=== PATIENT | female | born 1975 | race Caucasian/White ===

== ENCOUNTER 2016-11-29 10:27 | Inpatient (IN) | payer OTHER ==
[2016-11-29 10:44] VITALS: BMI 20.3
--- NOTE | 2016-11-29 14:05 | HP ---
COWS - Scale Resting Pulse: 0= [place] 80 or Below Sweatin=Flushed/Facial Moisture Restless Observation: 1= Difficult to Sit Still Pupil Size: 0= Normal to Room Light Bone or Joint Aches: 2= Severe Diffuse Aches Runny Nose/ Eye Tearin= Runny Nose/Eyes GI Upset > 30mins: 2= Nausea/Diarrhea Tremor Observation: 2= Slight Tremor Visible Yawning Observation: 2= >3x During Session Anxiety or Irritability: 2=Irritable/Anxious Goose Flesh Skin: 3=Piloerection COWS Score: 18 Admission ROS S - HPI Chief Complaint: i want to be clean and sober again. Allergies/Adverse Reactions: Allergies Allergy/AdvReac Type Severity Reaction Status Date / Time No Known Allergies Allergy Verified 11/29/16 11:40 History of Present Illness: pt is a 41yr old male with a history of heroin dependence seeking detox for treatment. Exam Limitations: No Limitations - Ebola screening Have you traveled outside of the country in the last 21 days: No Have you had contact with anyone from an Ebola affected area: No Have you been sick,other than usual withdrawal symptoms: No Do you have a fever: No - Review of Systems Constitutional: Chills, Diaphoresis, Loss of Appetite, Night Sweats, Changes in sleep, Unintentional Wgt. Loss EENT: reports: Tearing, Nose Congestion Respiratory: reports: No Symptoms reported GI: reports: Constipated, Nausea, Poor Appetite, Poor Fluid Intake : reports: No Symptoms Reported Musculoskeletal: reports: Back Pain, Joint Pain, Muscle Pain Integumentary: reports: Flushing, Sweating Neuro: reports: Headache, Seizure (sep 2016 benzo related seizure), Tingling, Tremors Endocrine: reports: Excessive Sweating, Flushing, Intolerance to Cold, Intolerance to Heat Hematology: reports: No Symptoms Reported Psychiatric: reports: Judgement Intact, Mood/Affect Appropiate, Orientated x3, Agitated, Anxious Other Systems: Reviewed and Negative Patient History - Patient Medical History Hx Anemia: No Hx Asthma: No Hx Chronic Obstructive Pulmonary Disease (COPD): No Hx Cancer: No Hx Cardiac Disorders: No Hx Congestive Heart Failure: No Hx Hypertension: No Hx Hypercholesterolemia: No Hx Pacemaker: No HX Cerebrovascular Accident: No Hx Seizures: Yes (09/2016) Hx Dementia: No Hx Diabetes: No Hx Gastrointestinal Disorders: No Hx Liver Disease: No Hx Genitourinary Disorders: No Hx Sexually Transmitted Disorders: No Hx Renal Disease (ESRD): No Hx Thyroid Disease: No Hx Human Immunodeficiency Virus (HIV): No (negative) Hx Hepatitis C: Yes (diagnosed in 2017) Hx Depression: No Hx Suicide Attempt: No (denies) Hx Bipolar Disorder: No Hx Schizophrenia: No Other Medical History: insomnia - Patient Surgical History Past Surgical History: No - PPD History Previous Implant?: Yes Documented Results: Negative w/o proof Implanted On Prior [facility] Admission?: No PPD to be Administered?: Yes - Reproductive History Last Menstrual Period: 09/22/16 Patient : No - Smoking Cessation Smoking history: Current every day smoker Have you smoked in the past 12 months: Yes Aproximately how many cigarettes per day: 20 Hx Chewing Tobacco Use: No Initiated information on smoking cessation: Yes 'Breaking Loose' booklet given: 11/29/16 - Substance & Tx. History Hx Alcohol Use: Yes Hx Substance Use: Yes Substance Use Type: Cocaine, Heroin, Tranquilizers Hx Substance Use Treatment: Yes - Substances Abused Alprazolam (Xanax) Route: Oral Frequency: Daily Amount used: 4mg Age of first use: 40 Date of Last Use: 11/27/16 Heroin Route: Injection Frequency: Daily Amount used: 30 bags Age of first use: 16 Date of Last Use: 11/28/16 Cocaine Route: Smoking Frequency: Daily Amount used: 1 gram Age of first use: 16 Date of Last Use: 11/27/16 Family Disease History - Family Disease History Family History: Denies Admission Physical Exam S - Vital Signs Vital Signs: Vital Signs - 24 hr 11/29/16 10:40 Temperature 97 F L Pulse Rate 72 Respiratory 20 Rate Blood Pressure 116/83 - Physical General Appearance: Yes: Appropriately Dressed, Moderate Distress, Tremorous, Irritable, Sweating, Anxious HEENTM: Yes: Hearing grossly Normal, Normal Voice Respiratory: Yes: Lungs Clear, Normal Breath Sounds, No Respiratory Distress Neck: Yes: No masses,lesions,Nodules Breast: Yes: Within Normal Limits Cardiology: Yes: Regular Rhythm, Regular Rate, S1, S2 Abdominal: Yes: Normal Bowel Sounds, Non Tender, Soft Genitourinary: Yes: Within Normal Limits Back: Yes: Normal Inspection Musculoskeletal: Yes: full range of Motion Extremities: Yes: Normal Capillary Refill, Normal Inspection, Tremors Neurological: Yes: Fully Oriented, Alert, Normal Response Integumentary: Yes: Diaphoresis, Track Mcknight Lymphatic: Yes: Within Normal Limits - Diagnostic (1) Opioid dependence with withdrawal Current Visit: Yes Status: Chronic (2) Cocaine dependence Current Visit: Yes Status: Chronic Qualifiers: Substance use status: uncomplicated Qualified Code(s): F14.20 - Cocaine dependence, uncomplicated (3) Nicotine dependence Current Visit: Yes Status: Chronic Qualifiers: Nicotine product type: cigarettes Substance use status: uncomplicated Qualified Code(s): F17.210 - Nicotine dependence, cigarettes, uncomplicated (4) History of seizure Current Visit: Yes Status: Suspected (5) Insomnia Current Visit: Yes Status: Chronic Cleared for Admission [facility] - Detox or Rehab [facility] Level of Care: Medically Managed Detox Regimen/Protocol: Methadone [facility] Breath Alcohol Content Breath Alcohol Content: 0 Urine Pregancy Test - Result Urine Test Results: Negative- NO Line Present Urine Drug Screen - Results Drug Screen Negative: No Urine Drug Screen Results: ELAINE-Cocaine, OPI-Opiates
[2016-11-29] MEDS ORDERED: diphenhydrAMINE HCL 50 MG CAPSULE PO PRN (14:08)
[2016-11-29] MEDS ORDERED: guaiFENesin/D-METHORPHAN HB 10 ML UNIT-DOSE CUPS PO PRN (14:08)
[2016-11-29] MEDS ORDERED: P-EPHED 60MG/TRIPROLIDI 2.5MG TABLET PO PRN (14:08)
[2016-11-29] MEDS ORDERED: MAGNESIUM HYDROX 2400MG/30ML ORAL SUSPENSION 30 ML CUP PO PRN (14:08)
[2016-11-29] MEDS ORDERED: MENTHOL/PHENOL 1 EACH UD MM PRN (14:08)
[2016-11-29] MEDS ORDERED: MAG HYDROX/AL HYDROX/SIMETH 30 ML UNIT-DOSE CUP PO PRN (14:08)
[2016-11-29] MEDS ORDERED: LOPERAMIDE HCL 2 MG CAPSULE PO PRN (14:08)
[2016-11-29] MEDS ORDERED: MAGNESIUM CITRATE 300 ML BOTTLE PO PRN (14:08)
[2016-11-29] MEDS ORDERED: ACETAMINOPHEN 325 MG TABLET (FP) PO PRN (14:08)
[2016-11-29 14:53] LABS: HIV 1 & 2 AB NEGATIVE; HIV 1 AGp24 NEGATIVE
[2016-11-29] MEDS ORDERED: METHADONE HCL 10 MG TABLET (FOR DETOX USE ONLY) PO ONE ×2 (15:00→23:00)
[2016-11-29] MEDS: diazePAM 5 MG TABLET PO PRN ×2 (15:01→18:59)
[2016-11-29 20:13] LABS: URINE APPEARANCE CLEAR; URINE BILIRUBIN NEGATIVE (NEGATIVE); URINE BLOOD NEGATIVE (NEGATIVE); URINE COLOR LTYELLOW; URINE GLUCOSE (UA) NEGATIVE (NEGATIVE); URINE KETONE NEGATIVE (NEGATIVE); URINE LEUK ESTERASE NEGATIVE (NEGATIVE); URINE NITRITE NEGATIVE (NEGATIVE); URINE PROTEIN NEGATIVE (NEGATIVE); URINE UROBILINOGEN NEGATIVE E.U./dl (0.2-1.0)
[2016-11-29] MEDS: THIAMINE HCL 100 MG TABLET (FP) PO SCH (22:37)
[2016-11-30] MEDS: diazePAM 5 MG TABLET PO PRN ×4 (03:52→23:06)
[2016-11-30] MEDS ORDERED: METHADONE HCL 10 MG TABLET (FOR DETOX USE ONLY) PO ONE (10:00)
[2016-11-30 10:43] LABS: MCH 27.5 pg (25.7-33.7); MCHC 32.2 g/dl (32.0-36.0); MEAN CELL VOLUME 85.3 fl (80-96); MEAN PLT VOLUME 9.5 fl (7.5-11.1); PLATELET COUNT 190 K/MM3 (134-434); RDW 17.6 % (11.6-15.6); WHITE BLOOD COUNT 8.9 K/mm3 (4.0-10.0)
[2016-11-30] MEDS: NICOTINE 21 MG/24 HOURS TOPICAL PATCH TD SCH (11:17)
[2016-11-30] MEDS: PRENATAL VITAMINS W/ FOLIC ACID TABLET (FP) PO SCH (11:17)
[2016-11-30 11:58] LABS: ALBUMIN 3.7 g/dl (3.4-5.0); ANION GAP 8 (8-16); CALCIUM 9.2 mg/dL (8.5-10.1); CO2 31 mmol/L (21-32); GLUCOSE,RANDOM 66 mg/dL (74-106)
[2016-11-30 12:02] LABS: ALK PHOS 107 U/L (45-117); BILIRUBIN,TOTAL 0.5 mg/dL (0.2-1.0); CREATININE 0.6 mg/dL (0.55-1.02); SGOT/AST 15 U/L (15-37); SGPT/ALT 26 U/L (12-78); TOT PROT 6.8 g/dl (6.4-8.2)
--- NOTE | 2016-11-30 14:35 | PN ---
S COWS - Scale Resting Pulse: 1= [place] 81-100 Sweatin= Chills/Flushing Restless Observation: 3= Extraneous Movement Pupil Size: 1= Pupils >than Normal Bone or Joint Aches: 2= Severe Diffuse Aches Runny Nose/ Eye Tearin= Runny Nose/Eyes GI Upset > 30mins: 3= Vomiting/Diarrhea Tremor Observation of Outstretched Hands: 2= Slight Tremor Visible Yawning Observation: 1= 1-2x During Session Anxiety or Irritability: 2=Irritable/Anxious Goose Flesh Skin: 0=Smooth Skin COWS Score: 18 S Progress Note (SOAP) Subjective: ALERT,IRRITABLE,ANXIOUS,INTERRUPTED SLEEP,TREMOR,PAIN IN THE BODY AND BACK Objective: 11/30/16 14:32 Vital Signs Temperature 97.1 F L 11/30/16 14:28 Pulse Rate 85 11/30/16 14:28 Respiratory Rate 16 11/30/16 14:28 Blood Pressure 103/63 11/30/16 14:28 O2 Sat by Pulse Oximetry (%) EKG NSR WITH SINUS ARRHYTHMIA Laboratory Last Values WBC 8.9 K/mm3 (4.0-10.0) 11/30/16 06:00 RBC 4.28 M/mm3 (3.60-5.2) 11/30/16 06:00 Hgb 11.8 GM/dL (10.7-15.3) 11/30/16 06:00 Hct 36.6 % (32.4-45.2) 11/30/16 06:00 MCV 85.3 fl (80-96) 11/30/16 06:00 MCHC 32.2 g/dl (32.0-36.0) 11/30/16 06:00 RDW 17.6 % (11.6-15.6) H 11/30/16 06:00 Plt Count 190 K/MM3 (134-434) 11/30/16 06:00 MPV 9.5 fl (7.5-11.1) 11/30/16 06:00 Sodium 142 mmol/L (136-145) 11/30/16 06:00 Potassium 4.9 mmol/L (3.5-5.1) 11/30/16 06:00 Chloride 103 mmol/L (98-107) 11/30/16 06:00 Carbon Dioxide 31 mmol/L (21-32) 11/30/16 06:00 Anion Gap 8 (8-16) 11/30/16 06:00 BUN 22 mg/dL (7-18) H 11/30/16 06:00 Creatinine 0.6 mg/dL (0.55-1.02) 11/30/16 06:00 Creat Clearance w eGFR > 60 (>60) 11/30/16 06:00 Random Glucose 66 mg/dL (74-106) L 11/30/16 06:00 Calcium 9.2 mg/dL (8.5-10.1) 11/30/16 06:00 Total Bilirubin 0.5 mg/dL (0.2-1.0) 11/30/16 06:00 AST 15 U/L (15-37) 11/30/16 06:00 ALT 26 U/L (12-78) 11/30/16 06:00 Alkaline Phosphatase 107 U/L (45-117) 11/30/16 06:00 Total Protein 6.8 g/dl (6.4-8.2) 11/30/16 06:00 Albumin 3.7 g/dl (3.4-5.0) 11/30/16 06:00 Urine Color Ltyellow 11/29/16 19:36 Urine Appearance Clear 11/29/16 19:36 Urine pH 5.0 (5.0-8.0) 11/29/16 19:36 Ur Specific [place] 1.019 (1.001-1.035) 11/29/16 19:36 Urine Protein Negative (NEGATIVE) 11/29/16 19:36 Urine Glucose (UA) Negative (NEGATIVE) 11/29/16 19:36 Urine Ketones Negative (NEGATIVE) 11/29/16 19:36 Urine Blood Negative (NEGATIVE) 11/29/16 19:36 Urine Nitrite Negative (NEGATIVE) 11/29/16 19:36 Urine Bilirubin Negative (NEGATIVE) 11/29/16 19:36 Urine Urobilinogen Negative E.U./dl (0.2-1.0) 11/29/16 19:36 Ur Leukocyte Esterase Negative (NEGATIVE) 11/29/16 19:36 HIV 1&2 Antibody Screen Negative 11/29/16 12:00 HIV P24 Antigen Negative 11/29/16 12:00 Assessment: 11/30/16 14:34 WITHDRAWAL SYMPTOM 11/30/16 14:34 Plan: CONTINUE DETOX
--- NOTE | 2016-11-30 14:56 | CONSULT ---
[facility] Psychiatric Consult - Data Date of interview: 11/30/16 Admission source: [facility] Identifying data: Readmission to [facility] for this 41 y/o female seeking detox teatment for heroin,cocaine and benzodiazepine dependence.Patient is single without children,domiciled,unemployed and deprived of any source of income. Substance Abuse History: - Smoking Cessation. Smoking history: Current every day smoker. Have you smoked in the past 12 months: Yes. Aproximately how many cigarettes per day: 20. Hx Chewing Tobacco Use: No. Initiated information on smoking cessation: Yes. 'Breaking Loose' booklet given: 11/29/16. - Substance & Tx. History. Hx Alcohol Use: Yes. Hx Substance Use: Yes. Substance Use Type : Cocaine, Heroin, Tranquilizers. Hx Substance Use Treatment: Yes. - Substances Abused. Alprazolam (Xanax). Route: Oral. Frequency: Daily. Amount used: 4mg. Age of first use: 40. Date of Last Use: 11/27/16. Heroin. Route: Injection. Frequency: Daily. Amount used: 30 bags. Age of first use: 16. Date of Last Use: 11/28/16. Cocaine. Route: Smoking. Frequency: Daily. Amount used: 1 gram. Age of first use: 16. Date of Last Use : 11/27/16. Confirmed by patient. Medical History: History of withdrawal seizures,hepatitis C and migraine headaches. Psychiatric History: Patient denies. Physical/Sexual Abuse/Trauma History: Patient denies. Additional Comment: Urine Drug Screen Results: ELAINE-Cocaine, OPI-Opiates.Noted. Mental Status Exam - Mental Status Exam Alert and Oriented to: Time, Place, Person Cognitive Function: Good Patient Appearance: Well Groomed Mood: Hopeful, Euthymic Affect: Normal Range Patient Behavior: Fatigued, Cooperative Speech Pattern: Clear, Appropriate Voice Loudness: Normal Thought Process: Goal Oriented Thought Disorder: Not Present Hallucinations: Denies Suicidal Ideation: Denies Homicidal Ideation: Denies Insight/Judgement: Poor Sleep: Poorly, Difficulty falling asleep Appetite: Good Muscle strength/Tone: Normal Gait/Station: Normal Psychiatric Findings - Problem List ([place] 1, 2,3) (1) Opioid dependence with withdrawal Current Visit: Yes Status: Acute (2) Cocaine dependence Current Visit: Yes Status: Acute Qualifiers: Substance use status: uncomplicated Qualified Code(s): F14.20 - Cocaine dependence, uncomplicated (3) Nicotine dependence Current Visit: Yes Status: Acute Qualifiers: Nicotine product type: cigarettes Substance use status: uncomplicated Qualified Code(s): F17.210 - Nicotine dependence, cigarettes, uncomplicated (4) History of seizure Current Visit: Yes Status: Suspected (5) Insomnia Current Visit: Yes Status: Chronic - Initial Treatment Plan Initial Treatment Plan: Psychoeducation.Detoxification.Zolpidem 10 mg po hs prn.Patient made aware of the risk of parasomnias.She agrees with this careplan.Observation.
[2016-11-30] MEDS: NICOTINE POLACRILEX 4 MG GUM BC PRN (15:30)
[2016-11-30] MEDS: ZOLPIDEM TARTRATE 5 MG TABLET PO PRN (23:06)
[2016-11-30] MEDS: THIAMINE HCL 100 MG TABLET (FP) PO SCH (23:46)
[2016-12-01] MEDS ORDERED: METHADONE HCL 5 MG TABLET (FOR DETOX USE ONLY) PO ONE (10:00)
[2016-12-01] MEDS: PRENATAL VITAMINS W/ FOLIC ACID TABLET (FP) PO SCH (10:35)
[2016-12-01] MEDS: diazePAM 5 MG TABLET PO PRN ×2 (10:36→14:37)
[2016-12-01] MEDS: NICOTINE 21 MG/24 HOURS TOPICAL PATCH TD SCH (10:36)
[2016-12-01] MEDS: NICOTINE POLACRILEX 4 MG GUM BC PRN ×2 (10:37→22:54)
--- NOTE | 2016-12-01 11:41 | EKG ---
Test Reason : Blood Pressure : / mmHG Vent. Rate : 064 BPM Atrial Rate : 064 BPM P-R Int : 136 ms QRS Dur : 088 ms QT Int : 418 ms P-R-T Axes : 065 052 054 degrees QTc Int : 431 ms NORMAL SINUS RHYTHM WITH SINUS ARRHYTHMIA NORMAL ECG NO PREVIOUS ECGS AVAILABLE Confirmed by JIMMY CRAVEN MD ([id number]) on 12/01/2016 11:40:40 AM Referred By: Confirmed By:JIMMY CRAVEN MD
--- NOTE | 2016-12-01 13:12 | PN ---
[facility] COWS - Scale Resting Pulse: 0= [place] 80 or Below Sweatin= Chills/Flushing Restless Observation: 3= Extraneous Movement Pupil Size: 1= Pupils >than Normal Bone or Joint Aches: 2= Severe Diffuse Aches Runny Nose/ Eye Tearin= Runny Nose/Eyes GI Upset > 30mins: 2= Nausea/Diarrhea Tremor Observation of Outstretched Hands: 2= Slight Tremor Visible Yawning Observation: 1= 1-2x During Session Anxiety or Irritability: 2=Irritable/Anxious Goose Flesh Skin: 0=Smooth Skin COWS Score: 16 B[facility] Progress Note (SOAP) Subjective: ALERT,IRRITABLE,ANXIOUS,INTERRUPTED SLEEP,TREMOR,PAIN IN THE BODY AND BACK Objective: 12/01/16 13:11 Vital Signs Temperature 95.7 F L 12/01/16 10:05 Pulse Rate 80 12/01/16 10:05 Respiratory Rate 18 12/01/16 10:05 Blood Pressure 106/67 12/01/16 10:05 O2 Sat by Pulse Oximetry (%) Assessment: 12/01/16 13:11 WITHDRAWAL SYMPTOM Plan: CONTINUE DETOX
[2016-12-01] MEDS: IBUPROFEN 400 MG TABLET (FP) PO PRN (14:37)
[2016-12-01] MEDS: THIAMINE HCL 100 MG TABLET (FP) PO SCH (22:41)
[2016-12-01] MEDS: hydrOXYzine PAMOATE 50 MG CAPSULE (FP) PO PRN (22:41)
[2016-12-01] MEDS: ZOLPIDEM TARTRATE 5 MG TABLET PO PRN (22:52)
[2016-12-02] MEDS ORDERED: METHADONE HCL 5 MG TABLET (FOR DETOX USE ONLY) PO ONE (10:00)
[2016-12-02] MEDS: PRENATAL VITAMINS W/ FOLIC ACID TABLET (FP) PO SCH (10:32)
[2016-12-02] MEDS: NICOTINE 21 MG/24 HOURS TOPICAL PATCH TD SCH (10:32)
[2016-12-02] MEDS: diazePAM 5 MG TABLET PO PRN (10:34)
--- NOTE | 2016-12-02 11:01 | PN ---
[facility] Progress Note (SOAP) Subjective: irritable sweats interrupted sleep Objective: 12/02/16 11:00 Vital Signs Temperature 97.3 F L 12/02/16 10:20 Pulse Rate 76 12/02/16 10:20 Respiratory Rate 18 12/02/16 10:20 Blood Pressure 106/66 12/02/16 10:20 O2 Sat by Pulse Oximetry (%) awake/alert ambulating no acute distress Assessment: 12/02/16 11:01 withdrawal sx Plan: continue detox increase fluids visitril prn
[2016-12-02] MEDS: hydrOXYzine PAMOATE 50 MG CAPSULE (FP) PO PRN (16:27)
[2016-12-02] MEDS: NICOTINE POLACRILEX 4 MG GUM BC PRN (16:28)
[2016-12-02] MEDS ORDERED: CYCLOBENZAPRINE HCL 10 MG TABLET (FP) PO SCH (22:00)
[2016-12-02] MEDS: ZOLPIDEM TARTRATE 5 MG TABLET PO PRN (22:34)
[2016-12-02] MEDS: CYCLOBENZAPRINE HCL 10 MG TABLET (FP) PO PRN (22:34)
[2016-12-02] MEDS: THIAMINE HCL 100 MG TABLET (FP) PO SCH (22:34)
[2016-12-03] MEDS ORDERED: METHADONE HCL 10 MG TABLET (FOR DETOX USE ONLY) PO ONE (10:00)
[2016-12-03] MEDS ORDERED: LIDOCAINE 5% TOPICAL PATCH TP ONE (10:17)
[2016-12-03] MEDS: PRENATAL VITAMINS W/ FOLIC ACID TABLET (FP) PO SCH (10:49)
[2016-12-03] MEDS: NICOTINE 21 MG/24 HOURS TOPICAL PATCH TD SCH (10:49)
[2016-12-03] MEDS: IBUPROFEN 400 MG TABLET (FP) PO PRN (10:51)
[2016-12-03] MEDS: CYCLOBENZAPRINE HCL 10 MG TABLET (FP) PO PRN ×2 (10:51→22:31)
[2016-12-03] MEDS: hydrOXYzine PAMOATE 50 MG CAPSULE (FP) PO PRN (10:51)
--- NOTE | 2016-12-03 11:48 | PN ---
[facility] Progress Note (SOAP) Subjective: interrupted sleep, sweats, lbp Objective: 12/03/16 11:46 Vital Signs Temperature 99.0 F 12/03/16 11:28 Pulse Rate 90 12/03/16 11:28 Respiratory Rate 16 12/03/16 11:28 Blood Pressure 101/60 12/03/16 11:28 O2 Sat by Pulse Oximetry (%) Laboratory Tests 11/29/16 11/29/16 11/30/16 12:00 19:36 06:00 WBC 8.9 RBC 4.28 Hgb 11.8 Hct 36.6 MCV 85.3 MCHC 32.2 RDW 17.6 H Plt Count 190 MPV 9.5 Sodium Potassium Chloride Carbon Dioxide Anion Gap BUN Creatinine Creat Clearance w eGFR Random Glucose Calcium Total Bilirubin AST ALT Alkaline Phosphatase Total Protein Albumin Urine Color Ltyellow Urine Appearance Clear Urine pH 5.0 Ur Specific [place] 1.019 Urine Protein Negative Urine Glucose (UA) Negative Urine Ketones Negative Urine Blood Negative Urine Nitrite Negative Urine Bilirubin Negative Urine Urobilinogen Negative Ur Leukocyte Esterase Negative RPR Titer HIV 1&2 Antibody Screen Negative HIV P24 Antigen Negative 11/30/16 11/30/16 06:00 06:00 WBC RBC Hgb Hct MCV MCHC RDW Plt Count MPV Sodium 142 Potassium 4.9 Chloride 103 Carbon Dioxide 31 Anion Gap 8 BUN 22 H Creatinine 0.6 Creat Clearance w eGFR > 60 Random Glucose 66 L Calcium 9.2 Total Bilirubin 0.5 AST 15 ALT 26 Alkaline Phosphatase 107 Total Protein 6.8 Albumin 3.7 Urine Color Urine Appearance Urine pH Ur Specific [place] Urine Protein Urine Glucose (UA) Urine Ketones Urine Blood Urine Nitrite Urine Bilirubin Urine Urobilinogen Ur Leukocyte Esterase RPR Titer Nonreactive HIV 1&2 Antibody Screen HIV P24 Antigen pt aox3 in nad ambulating Assessment: 12/03/16 11:47 withdrawal sx' lbp Plan: cont. detox increase fluids lidocaine patch d/c in am
[2016-12-03] MEDS: ZOLPIDEM TARTRATE 5 MG TABLET PO PRN (22:31)
[2016-12-03] MEDS: THIAMINE HCL 100 MG TABLET (FP) PO SCH (22:32)
[2016-12-03] MEDS: NICOTINE POLACRILEX 4 MG GUM BC PRN (22:32)
[2016-12-04] MEDS ORDERED: METHADONE HCL 5 MG TABLET (FOR DETOX USE ONLY) PO ONE (06:00)
[2016-12-04 06:20] VITALS: BP 95/60; PULSE 75; TEMP 97.7
--- NOTE | 2016-12-04 08:35 | DS ---
[facility] Detox Discharge Summary Admission Date: 11/29/16 Discharge Date: 12/04/16 - History Present History: Cocaine Dependence, Opioid Dependence - Physical Exam Results Vital Signs: Vital Signs Temperature 97.7 F 12/04/16 06:00 Pulse Rate 75 12/04/16 06:00 Respiratory Rate 18 12/04/16 06:00 Blood Pressure 95/60 12/04/16 06:00 O2 Sat by Pulse Oximetry (%) - Treatment Hospital Course: Detox Protocol Followed, Detoxed Safely, Responded well, Discharged Condition Good, Rehab Referral Accepted - Medication Discharge Medications: Ambulatory Orders NK [No Known Home Medication] 11/29/16 - Diagnosis (1) Opioid dependence with withdrawal Current Visit: Yes Status: Chronic (2) Cocaine dependence Current Visit: Yes Status: Chronic Qualifiers: Substance use status: uncomplicated Qualified Code(s): F14.20 - Cocaine dependence, uncomplicated (3) Nicotine dependence Current Visit: Yes Status: Acute Qualifiers: Nicotine product type: cigarettes Substance use status: uncomplicated Qualified Code(s): F17.210 - Nicotine dependence, cigarettes, uncomplicated (4) History of seizure Current Visit: Yes Status: Suspected (5) Insomnia Current Visit: Yes Status: Chronic - AMA Did Patient Leave Against Medical Advice: No
[2016-12-04] MEDS ORDERED: LIDOCAINE 5% TOPICAL PATCH TP SCH (10:00)
== END 2016-12-04 09:00 | disposition home or self-care (01) | DRG 773 ==
LOC: YASAS 10:27 → Y6N 12:40
PROVIDERS: ADMIT Internal Medicine Addiction Medicine; ATTEND Internal Medicine Addiction Medicine
PROC: HZ2ZZZZ Detoxification Services for Substance Abuse Treatment (ICD-10-PCS; principal; 2016-11-29)
DX: F11.23 Opioid dependence with withdrawal (principal); F14.20 Cocaine dependence, uncomplicated; F17.210 Nicotine dependence, cigarettes, uncomplicated; B18.2 Chronic viral hepatitis C; I49.9 Cardiac arrhythmia, unspecified; G47.00 Insomnia, unspecified; M54.5 Low back pain; Z86.69 Personal history of other diseases of the nervous system and sense organs
CPT/HCPCS: 36415; 80053; 81003; 85027; 86593; 87389; 93005; 93010

== ENCOUNTER 2018-09-15 12:14 | Inpatient (IN) | payer OTHER ==
[2018-09-15 13:30] VITALS: BMI 23.6
--- NOTE | 2018-09-15 16:25 | HP ---
COWS - Scale Resting Pulse: 0= [place] 80 or Below Sweatin= Chills/Flushing Restless Observation: 1= Difficult to Sit Still Pupil Size: 1= Pupils >than Normal Bone or Joint Aches: 2= Severe Diffuse Aches Runny Nose/ Eye Tearin= Runny Nose/Eyes GI Upset > 30mins: 2= Nausea/Diarrhea Tremor Observation: 1= Tremor [place], Not Seen Yawning Observation: 1= 1-2x During Session Anxiety or Irritability: 2=Irritable/Anxious Goose Flesh Skin: 0=Smooth Skin COWS Score: 13 CIWA Score Nausea/Vomitin Muscle Tremors: 2 Anxiety: 2 Agitation: 2 Paroxysmal Sweats: 2 Orientation: 0-Oriented Tacttile Disturbances: 0-None Auditory Disturbances: 0-None Visual Disturbances: 0-None Headache: 2-Mild CIWA-Ar Total Score: 12 - Admission Criteria [facility] Guidelines: Admission for Medically Managed Detox: Requires at least one of the followin. CIWA greater than 12 2. Seizures within the past 24 hours 3. Delirium tremens within the past 24 hours 4. Hallucinations within the past 24 hours 5. Acute intervention needed for co occurring medical disorder 6. Acute intervention needed for co occurring psychiatric disorder 7. Severe withdrawal that cannot be handled at a lower level of care (continued vomiting, continued diarrhea, abnormal vital signs) requiring intravenous medication and/or fluids 8. Admission ROS [facility] Chief Complaint: WITHDRAWAL SYMPTOMS Allergies/Adverse Reactions: Allergies Allergy/AdvReac Type Severity Reaction Status Date / Time No Known Allergies Allergy Verified 11/29/16 11:40 History of Present Illness: 43 Y.O. FEMALE WITH A HISTORY OF HEROIN, ALCOHOL AND XANAX DEPENDENCE IS HERE SEEKING DETOX SERVICES. SHE REPORTS HER LAST DETOX WAS AT [facility] BUT LEFT [facility] ON 08/19/18. LONGEST PERIOD OF DRUG AND ALCOHOL ABSTINENCE HAS BEEN 5 YEARS. Exam Limitations: No Limitations - Ebola screening Have you traveled outside of the country in the last 21 days: No (N) Have you had contact with anyone from an Ebola affected area: No Have you been sick,other than usual withdrawal symptoms: No Do you have a fever: No - Review of Systems Constitutional: Chills, Diaphoresis EENT: reports: Tearing Respiratory: reports: No Symptoms reported Cardiac: reports: No Symptoms Reported GI: reports: Nausea, Abdominal cramping : reports: No Symptoms Reported Musculoskeletal: reports: Back Pain, Neck Pain, Joint Stiffness Integumentary: reports: No Symptoms Reported Neuro: reports: Headache, Tremors Endocrine: reports: No Symptoms Reported Hematology: reports: No Symptoms Reported Psychiatric: reports: Mood/Affect Appropiate, Orientated x3 Other Systems: Reviewed and Negative Patient History - Patient Medical History Hx Anemia: No Hx Asthma: No Hx Chronic Obstructive Pulmonary Disease (COPD): No Hx Cancer: No Hx Cardiac Disorders: No Hx Congestive Heart Failure: No Hx Hypertension: No Hx Hypercholesterolemia: No Hx Pacemaker: No HX Cerebrovascular Accident: No Hx Seizures: Yes (09/2016 BENZO INDUCED ) Hx Dementia: No Hx Diabetes: No Hx Gastrointestinal Disorders: No Hx Liver Disease: No Hx Genitourinary Disorders: No Hx Sexually Transmitted Disorders: No Hx Renal Disease (ESRD): No Hx Thyroid Disease: No Hx Human Immunodeficiency Virus (HIV): No (negative) Hx Hepatitis C: Yes (diagnosed in 2017 (untreated)) Hx Depression: No Hx Suicide Attempt: No (denies) Hx Bipolar Disorder: No Hx Schizophrenia: No - Patient Surgical History Past Surgical History: Yes Other Surgical History: 04/2017 Fasciotomy of the right left Anesthesia Reaction: No - PPD History Previous Implant?: Yes Documented Results: Negative w/proof Implanted On Prior R Admission?: Yes Date: 12/01/16 Results: 0 PPD to be Administered?: Yes - Reproductive History Patient is a Female of Child Bearing Age (11 -55 yrs old): Yes Last Menstrual Period: 07/16/18 Patient : No - Smoking Cessation Smoking history: Current every day smoker Have you smoked in the past 12 months: Yes Aproximately how many cigarettes per day: 20 Hx Chewing Tobacco Use: No Initiated information on smoking cessation: Yes 'Breaking Loose' booklet given: 09/15/18 - Substance & Tx. History Hx Alcohol Use: Yes Hx Substance Use: Yes Substance Use Type: Alcohol, Heroin, Tranquilizers Hx Substance Use Treatment: Yes (Detox: 08/2018 at [facility] ) - Substances Abused Heroin Route: Injection Frequency: Daily Amount used: 3 grams Age of first use: 16 Date of Last Use: 09/15/18 Alcohol Route: Oral Frequency: Daily Amount used: 1/5 of Vodka Age of first use: 43 Date of Last Use: 09/15/18 Alprazolam (Xanax) Route: Oral Frequency: Daily Amount used: 1/2 stick Age of first use: 33 Date of Last Use: 09/12/18 Family Disease History - Family Disease History Family Disease History: Other: Father (ETOH AND COCAINE DEPENDENCE ) Admission Physical Exam [facility] - Vital Signs Vital Signs: Vital Signs - 24 hr 09/15/18 13:28 Temperature 99.1 F Pulse Rate 69 Respiratory 20 Rate Blood Pressure 131/87 - Physical General Appearance: Yes: Sweating, Anxious HEENTM: Yes: Hearing grossly Normal, Normocephalic, Normal Voice Respiratory: Yes: Chest Non-Tender, Lungs Clear, Normal Breath Sounds, No Respiratory Distress, No Accessory Muscle Use Neck: Yes: No masses,lesions,Nodules Breast: Yes: Breast Exam Deferred Cardiology: Yes: Regular Rhythm, Regular Rate Abdominal: Yes: Normal Bowel Sounds, Non Tender, Flat Genitourinary: Yes: Other (NO COMPLAINTS REPORTED) Back: Yes: Normal Inspection Musculoskeletal: Yes: full range of Motion, Gait Steady Extremities: Yes: Normal Capillary Refill, Normal Inspection, Normal Range of Motion Neurological: Yes: Alert, Normal Mood/Affect, Normal Response Integumentary: Yes: Normal Color, Dry, Warm, Track Mcknight (LEFT ARM) Lymphatic: Yes: Within Normal Limits - Diagnostic (1) Alcohol dependence with uncomplicated withdrawal Current Visit: Yes Status: Chronic (2) Nicotine dependence Current Visit: Yes Status: Chronic Qualifiers: Nicotine product type: cigarettes Substance use status: uncomplicated Qualified Code(s): F17.210 - Nicotine dependence, cigarettes, uncomplicated (3) Cocaine dependence Current Visit: Yes Status: Chronic Qualifiers: Substance use status: uncomplicated Qualified Code(s): F14.20 - Cocaine dependence, uncomplicated (4) Opioid dependence with withdrawal Current Visit: Yes Status: Chronic (5) History of seizure Current Visit: No Status: Suspected Cleared for Admission [facility] - Detox or Rehab [facility] Level of Care: Medically Managed Detox Regimen/Protocol: Methadone/Valium [facility] Breath Alcohol Content Breath Alcohol Content: 0 Urine Pregancy Test - Result Urine Test Results: Negative- NO Line Present Urine Drug Screen - Results Drug Screen Negative: No Urine Drug Screen Results: ELAINE-Cocaine, OPI-Opiates, FEN-Fentanyl
[2018-09-15] MEDS ORDERED: MAG HYDROX/AL HYDROX/SIMETH 30 ML UNIT-DOSE CUP PO PRN (16:31)
[2018-09-15] MEDS ORDERED: MAGNESIUM HYDROX 2400MG/30ML ORAL SUSPENSION 30 ML CUP PO PRN (16:31)
[2018-09-15] MEDS ORDERED: guaiFENesin/D-METHORPHAN HB 10 ML UNIT-DOSE CUPS PO PRN (16:31)
[2018-09-15] MEDS ORDERED: MAGNESIUM CITRATE 300 ML BOTTLE PO PRN (16:31)
[2018-09-15] MEDS ORDERED: ACETAMINOPHEN 325 MG TABLET (FP) PO PRN (16:31)
[2018-09-15] MEDS ORDERED: MENTHOL/PHENOL 1 EACH UD MM PRN (16:31)
[2018-09-15] MEDS ORDERED: LOPERAMIDE HCL 2 MG CAPSULE PO PRN (16:31)
[2018-09-15] MEDS ORDERED: P-EPHED 60MG/TRIPROLIDI 2.5MG TABLET PO PRN (16:31)
[2018-09-15] MEDS ORDERED: METHADONE HCL 10 MG TABLET (FOR DETOX USE ONLY) PO ONE ×2 (17:15→23:00)
[2018-09-15] MEDS ORDERED: diazePAM 5 MG TABLET PO ONE (17:15)
[2018-09-15] MEDS: NICOTINE POLACRILEX 2 MG GUM BC PRN (22:32)
[2018-09-15] MEDS: THIAMINE HCL 100 MG TABLET (FP) PO SCH (22:32)
[2018-09-15] MEDS: diazePAM 5 MG TABLET PO SCH (22:32)
[2018-09-15] MEDS: MELATONIN 5 MG TABLETS PO PRN (22:34)
[2018-09-16] MEDS: diazePAM 5 MG TABLET PO PRN ×3 (01:55→19:12)
[2018-09-16] MEDS: hydrOXYzine PAMOATE 50 MG CAPSULE (FP) PO PRN (01:55)
[2018-09-16] MEDS: diazePAM 5 MG TABLET PO SCH ×3 (06:11→22:34)
--- NOTE | 2018-09-16 09:40 | PN ---
[facility] CIWA - CIWA Score Nausea/Vomitin-Mild Nausea/No Vomiting Muscle Tremors: 3 Anxiety: 3 Agitation: 3 Paroxysmal Sweats: 1-Minimal Palms Moist Orientation: 1-Uncertain about Date Tacttile Disturbances: 0-None Auditory Disturbances: 0-None Visual Disturbances: 0-None Headache: 1-Very Mild CIWA-Ar Total Score: 13 [facility] COWS - Scale Resting Pulse: 0= [place] 80 or Below Sweatin= Chills/Flushing Restless Observation: 1= Difficult to Sit Still Pupil Size: 0= Normal to Room Light Bone or Joint Aches: 2= Severe Diffuse Aches Runny Nose/ Eye Tearin= Runny Nose/Eyes GI Upset > 30mins: 2= Nausea/Diarrhea Tremor Observation of Outstretched Hands: 2= Slight Tremor Visible Yawning Observation: 1= 1-2x During Session Anxiety or Irritability: 2=Irritable/Anxious Goose Flesh Skin: 0=Smooth Skin COWS Score: 13 [facility] Progress Note (SOAP) Subjective: body aches muscle cramp tremor sweat nausea joints pain Objective: 09/16/18 13:36 Vital Signs Temperature 96.7 F L 09/16/18 09:13 Pulse Rate 63 09/16/18 09:13 Respiratory Rate 16 09/16/18 09:13 Blood Pressure 100/72 09/16/18 09:13 O2 Sat by Pulse Oximetry (%) Laboratory Last Values RPR Titer Nonreactive (NONREACTIVE) 09/16/18 08:00 HIV 1&2 Antibody Screen Negative 09/16/18 09:32 HIV P24 Antigen Negative 09/16/18 09:32 lab noted Assessment: 09/16/18 13:36 withdrawal sx Plan: continue detox
[2018-09-16] MEDS ORDERED: METHADONE HCL 10 MG TABLET (FOR DETOX USE ONLY) PO SCH (10:00)
[2018-09-16] MEDS: PRENATAL VITAMINS W/ FOLIC ACID TABLET (FP) PO SCH (10:51)
[2018-09-16] MEDS: NICOTINE 21 MG/24 HOURS TOPICAL PATCH TD SCH (11:30)
[2018-09-16 13:38] LABS: ALBUMIN 3.3 g/dl (3.4-5.0); ALK PHOS 66 U/L (45-117); ANION GAP 8 MMOL/L (8-16); BILIRUBIN,TOTAL 0.3 mg/dL (0.2-1); BLOOD UREA NITROGEN 15 mg/dL (7-18); CALCIUM 8.5 mg/dL (8.5-10.1); CHLORIDE 107 mmol/L (98-107); CO2 26 mmol/L (21-32); CREATININE 0.6 mg/dL (0.55-1.3); GLUCOSE,RANDOM 77 mg/dL (74-106); POTASSIUM 4.3 mmol/L (3.5-5.1); SGOT/AST 19 U/L (15-37); SGPT/ALT 20 U/L (13-61); SODIUM 140 mmol/L (136-145); TOT PROT 6.4 g/dl (6.4-8.2)
[2018-09-16] MEDS ORDERED: ONDANSETRON *ODT* 4 MG TABLET SL ONE (14:45)
[2018-09-16 15:09] LABS: HEMATOCRIT 38.3 % (32.4-45.2); HEMOGLOBIN 12.1 GM/dL (10.7-15.3); MCH 27.1 pg (25.7-33.7); MCHC 31.6 g/dl (32.0-36.0); MEAN CELL VOLUME 85.6 fl (80-96); MEAN PLT VOLUME 9.4 fl (7.5-11.1); PLATELET COUNT 133 K/MM3 (134-434); RBC 4.47 M/mm3 (3.60-5.2); RDW 16.9 % (11.6-15.6); WHITE BLOOD COUNT 3.9 K/mm3 (4.0-10.0)
--- NOTE | 2018-09-16 16:52 | CONSULT ---
[facility] Psychiatric Consult - Data Date of interview: 09/16/18 Admission source: [facility] Identifying data: Readmission to [facility] for this 43 y/o female seeking detoxification treatment, on , for heroin, cocaine and benzodiazepine (xanax) dependence. Patient is single without children, domiciled, unemployed and deprived of income. Substance Abuse History: Confirmed by patient in this interview. details in current [facility] report : Smoking history: Current every day smoker. Have you smoked in the past 12 months: Yes. Aproximately how many cigarettes per day: 20. Hx Chewing Tobacco Use: No. Initiated information on smoking cessation: Yes. 'Breaking Loose' booklet given: 09/15/18. - Substance & Tx. History. Hx Alcohol Use: Yes. Hx Substance Use: Yes. Substance Use Type: Alcohol, Heroin, Tranquilizers. Hx Substance Use Treatment: Yes (Detox: 08/2018 at [facility] ) . - Substances Abused. Heroin. Route: Injection. Frequency: Daily. Amount used: 3 grams. Age of first use: 16. Date of Last Use: 09/15/18. Alcohol. Route: Oral. Frequency: Daily. Amount used: 1/5 of Vodka. Age of first use: 43. Date of Last Use: 09/15/18. Alprazolam (Xanax). Route: Oral. Frequency: Daily. Amount used: 1/2 stick. Age of first use: 33. Date of Last Use: 09/12/18 Medical History: History of withdrawal seizures, hepatitis C and fasciotomy. Psychiatric History: Patient denies. Physical/Sexual Abuse/Trauma History: Patient denies. Additional Comment: Urine Drug Screen Results: ELAINE-Cocaine, OPI-Opiates, FEN- Fentanyl. Noted. Mental Status Exam - Mental Status Exam Alert and Oriented to: Time, Place, Person Cognitive Function: Good Patient Appearance: Unkempt, Disheveled (hair dyed in pink) Mood: Nervous, Withdrawn, Irritable Affect: Mood Congruent Patient Behavior: Cooperative (superficially cooperative) Speech Pattern: Clear Voice Loudness: Normal Thought Process: Goal Oriented Thought Disorder: Not Present Hallucinations: Denies Suicidal Ideation: Denies Homicidal Ideation: Denies Insight/Judgement: Poor Sleep: Poorly, Difficulty falling asleep Appetite: Good Gait/Station: Other (not observed ; in bed all day long) Psychiatric Findings - Problem List ([place] 1, 2,3) (1) Alcohol dependence with uncomplicated withdrawal Current Visit: Yes Status: Acute (2) Opioid dependence with withdrawal Current Visit: Yes Status: Acute (3) Cocaine dependence Current Visit: Yes Status: Chronic Qualifiers: Substance use status: uncomplicated Qualified Code(s): F14.20 - Cocaine dependence, uncomplicated (4) Nicotine dependence Current Visit: Yes Status: Chronic Qualifiers: Nicotine product type: cigarettes Substance use status: uncomplicated Qualified Code(s): F17.210 - Nicotine dependence, cigarettes, uncomplicated (5) Insomnia Current Visit: Yes Status: Chronic - Initial Treatment Plan Initial Treatment Plan: Psychoeducation. Sleep hygiene. Detoxification in progress. Seroquel 50 mg po hs at [facility]'s request. Side effects/benefits discussed with the patient. Ms Pham is in agreement with this plan of care. Observation.
[2018-09-16] MEDS: NICOTINE POLACRILEX 2 MG GUM BC PRN ×2 (19:08→22:35)
[2018-09-16] MEDS: QUEtiapine FUMARATE 50 MG TABLET PO SCH (22:34)
[2018-09-16] MEDS: THIAMINE HCL 100 MG TABLET (FP) PO SCH (22:34)
[2018-09-16] MEDS: MELATONIN 5 MG TABLETS PO PRN (22:35)
[2018-09-16] MEDS: diphenhydrAMINE HCL 25 MG CAPSULE (FP) PO PRN (22:37)
[2018-09-17] MEDS ORDERED: COLLOIDAL OATMEAL 1 BAR EACH TP PRN (00:30)
[2018-09-17] MEDS: NICOTINE 21 MG/24 HOURS TOPICAL PATCH TD SCH (10:49)
[2018-09-17] MEDS: METHADONE HCL 5 MG TABLET (FOR DETOX USE ONLY) PO SCH (10:49)
[2018-09-17] MEDS: diazePAM 5 MG TABLET PO SCH ×2 (10:49→22:13)
[2018-09-17] MEDS: PRENATAL VITAMINS W/ FOLIC ACID TABLET (FP) PO SCH (10:49)
[2018-09-17] MEDS: NICOTINE POLACRILEX 2 MG GUM BC PRN ×3 (10:52→22:14)
[2018-09-17] MEDS: IBUPROFEN 400 MG TABLET (FP) PO PRN (13:47)
[2018-09-17] MEDS: diazePAM 5 MG TABLET PO PRN ×2 (13:47→18:29)
--- NOTE | 2018-09-17 16:20 | PN ---
S CIWA - CIWA Score Nausea/Vomitin-Mild Nausea/No Vomiting Muscle Tremors: 3 Anxiety: 2 Agitation: 2 Paroxysmal Sweats: 1-Minimal Palms Moist Orientation: 0-Oriented Tacttile Disturbances: 0-None Auditory Disturbances: 0-None Visual Disturbances: 0-None Headache: 2-Mild CIWA-Ar Total Score: 11 S COWS - Scale Resting Pulse: 0= [place] 80 or Below Sweatin= Chills/Flushing Restless Observation: 0= Sits Still Pupil Size: 0= Normal to Room Light Bone or Joint Aches: 1= Mild Discomfort Runny Nose/ Eye Tearin= Nasal Congestion GI Upset > 30mins: 0= None Tremor Observation of Outstretched Hands: 1= Tremor [place], Not Seen Yawning Observation: 2= >3x During Session Anxiety or Irritability: 1=Feels Anxious/Irritable Goose Flesh Skin: 0=Smooth Skin COWS Score: 7 S Progress Note (SOAP) Subjective: body aches tremor sweat muscle pain Objective: 09/17/18 16:21 Vital Signs Temperature 97.4 F L 09/17/18 13:29 Pulse Rate 70 09/17/18 13:29 Respiratory Rate 16 09/17/18 13:29 Blood Pressure 127/78 09/17/18 13:29 O2 Sat by Pulse Oximetry (%) Laboratory Last Values WBC 3.9 K/mm3 (4.0-10.0) L 09/16/18 09:32 RBC 4.47 M/mm3 (3.60-5.2) 09/16/18 09:32 Hgb 12.1 GM/dL (10.7-15.3) 09/16/18 09:32 Hct 38.3 % (32.4-45.2) 09/16/18 09:32 MCV 85.6 fl (80-96) 09/16/18 09:32 MCH 27.1 pg (25.7-33.7) 09/16/18 09:32 MCHC 31.6 g/dl (32.0-36.0) L 09/16/18 09:32 RDW 16.9 % (11.6-15.6) H 09/16/18 09:32 Plt Count 133 K/MM3 (134-434) L D 09/16/18 09:32 MPV 9.4 fl (7.5-11.1) 09/16/18 09:32 Sodium 140 mmol/L (136-145) 09/16/18 09:32 Potassium 4.3 mmol/L (3.5-5.1) 09/16/18 09:32 Chloride 107 mmol/L (98-107) 09/16/18 09:32 Carbon Dioxide 26 mmol/L (21-32) 09/16/18 09:32 Anion Gap 8 MMOL/L (8-16) 09/16/18 09:32 BUN 15 mg/dL (7-18) 09/16/18 09:32 Creatinine 0.6 mg/dL (0.55-1.3) 09/16/18 09:32 Creat Clearance w eGFR > 60 (>60) 09/16/18 09:32 Random Glucose 77 mg/dL (74-106) 09/16/18 09:32 Calcium 8.5 mg/dL (8.5-10.1) 09/16/18 09:32 Total Bilirubin 0.3 mg/dL (0.2-1) 09/16/18 09:32 AST 19 U/L (15-37) 09/16/18 09:32 ALT 20 U/L (13-61) 09/16/18 09:32 Alkaline Phosphatase 66 U/L (45-117) 09/16/18 09:32 Total Protein 6.4 g/dl (6.4-8.2) 09/16/18 09:32 Albumin 3.3 g/dl (3.4-5.0) L 09/16/18 09:32 RPR Titer Nonreactive (NONREACTIVE) 09/16/18 08:00 HIV 1&2 Antibody Screen Negative 09/16/18 09:32 HIV P24 Antigen Negative 09/16/18 09:32 lab noted Assessment: 09/17/18 16:21 withdrawal sx Plan: continue detox
[2018-09-17] MEDS: hydrOXYzine PAMOATE 50 MG CAPSULE (FP) PO PRN (16:52)
[2018-09-17 17:27] LABS: URINE APPEARANCE CLOUDY; URINE BILIRUBIN NEGATIVE (<2.0 mg/dL); URINE COLOR LTYELLOW; URINE GLUCOSE (UA) NEGATIVE (NEGATIVE); URINE KETONE NEGATIVE (NEGATIVE); URINE LEUK ESTERASE NEGATIVE (NEGATIVE); URINE NITRITE NEGATIVE (NEGATIVE); URINE PROTEIN NEGATIVE (NEGATIVE); URINE UROBILINOGEN NEGATIVE mg/dL (0.2-1.0)
[2018-09-17] MEDS: THIAMINE HCL 100 MG TABLET (FP) PO SCH (22:13)
[2018-09-17] MEDS: QUEtiapine FUMARATE 50 MG TABLET PO SCH (22:14)
[2018-09-17] MEDS: MELATONIN 5 MG TABLETS PO PRN (22:14)
[2018-09-17] MEDS: diphenhydrAMINE HCL 25 MG CAPSULE (FP) PO PRN (22:15)
[2018-09-18] MEDS: METHADONE HCL 5 MG TABLET (FOR DETOX USE ONLY) PO SCH (09:56)
[2018-09-18] MEDS: diazePAM 5 MG TABLET PO SCH ×2 (09:57→22:07)
[2018-09-18] MEDS: PRENATAL VITAMINS W/ FOLIC ACID TABLET (FP) PO SCH (09:57)
[2018-09-18] MEDS: NICOTINE 21 MG/24 HOURS TOPICAL PATCH TD SCH (09:59)
[2018-09-18] MEDS: diazePAM 5 MG TABLET PO PRN (13:00)
[2018-09-18] MEDS: NICOTINE POLACRILEX 2 MG GUM BC PRN ×2 (13:01→22:10)
--- NOTE | 2018-09-18 13:19 | PN ---
[facility] Progress Note Note: PATIENT CONTINUES WITH DETOX REGIMEN. PATIENT C/O ANXIETY, SWEATING AND INTERRUPTED SLEEP. Vital Signs Temperature 97.0 F L 09/18/18 09:49 Pulse Rate 61 09/18/18 09:49 Respiratory Rate 17 09/18/18 09:49 Blood Pressure 107/81 09/18/18 09:49 O2 Sat by Pulse Oximetry (%) Vital Signs Temperature 97.0 F L 09/18/18 09:49 Pulse Rate 61 09/18/18 09:49 Respiratory Rate 17 09/18/18 09:49 Blood Pressure 107/81 09/18/18 09:49 O2 Sat by Pulse Oximetry (%) Laboratory Tests 09/16/18 09/16/18 09/16/18 08:00 09:32 09:32 WBC 3.9 L RBC 4.47 Hgb 12.1 Hct 38.3 MCV 85.6 MCH 27.1 MCHC 31.6 L RDW 16.9 H Plt Count 133 L D MPV 9.4 Sodium 140 Potassium 4.3 Chloride 107 Carbon Dioxide 26 Anion Gap 8 BUN 15 Creatinine 0.6 Creat Clearance w eGFR > 60 Random Glucose 77 Calcium 8.5 Total Bilirubin 0.3 AST 19 ALT 20 Alkaline Phosphatase 66 Total Protein 6.4 Albumin 3.3 L Urine Color Urine Appearance Urine pH Ur Specific [place] Urine Protein Urine Glucose (UA) Urine Ketones Urine Blood Urine Nitrite Urine Bilirubin Urine Urobilinogen Ur Leukocyte Esterase RPR Titer Nonreactive HIV 1&2 Antibody Screen HIV P24 Antigen 09/16/18 09/17/18 09:32 13:30 WBC RBC Hgb Hct MCV MCH MCHC RDW Plt Count MPV Sodium Potassium Chloride Carbon Dioxide Anion Gap BUN Creatinine Creat Clearance w eGFR Random Glucose Calcium Total Bilirubin AST ALT Alkaline Phosphatase Total Protein Albumin Urine Color Ltyellow Urine Appearance Cloudy Urine pH 7.0 D Ur Specific [place] 1.008 L Urine Protein Negative Urine Glucose (UA) Negative Urine Ketones Negative Urine Blood Negative Urine Nitrite Negative Urine Bilirubin Negative Urine Urobilinogen Negative Ur Leukocyte Esterase Negative RPR Titer HIV 1&2 Antibody Screen Negative HIV P24 Antigen Negative PE: ALERT AND ORIENTED X 3 SKIN WARM AND DRY CAR S1S2 RESP CTA BL EXT FULL ROM, NO VISIBLE TREMORS AMB AD REYNALDO A/P WITHDRAWAL SX CONTINUE DETOX ENCOURAGE ORAL FLUIDS CONTINUE TO MONITOR CLINICALLY
[2018-09-18] MEDS: IBUPROFEN 400 MG TABLET (FP) PO PRN (14:02)
[2018-09-18] MEDS: hydrOXYzine PAMOATE 50 MG CAPSULE (FP) PO PRN (19:51)
[2018-09-18] MEDS: diphenhydrAMINE HCL 25 MG CAPSULE (FP) PO PRN (22:07)
[2018-09-18] MEDS: CYCLOBENZAPRINE HCL 10 MG TABLET (FP) PO PRN (22:07)
[2018-09-18] MEDS: QUEtiapine FUMARATE 50 MG TABLET PO SCH (22:07)
[2018-09-18] MEDS: THIAMINE HCL 100 MG TABLET (FP) PO SCH (22:07)
[2018-09-19] MEDS ORDERED: diazePAM 5 MG TABLET PO SCH (10:00)
[2018-09-19] MEDS ORDERED: METHADONE HCL 10 MG TABLET (FOR DETOX USE ONLY) PO SCH (10:00)
[2018-09-19] MEDS ORDERED: LIDOCAINE 5% TOPICAL PATCH TP SCH (10:30)
[2018-09-19] MEDS: PRENATAL VITAMINS W/ FOLIC ACID TABLET (FP) PO SCH (11:01)
[2018-09-19] MEDS: NICOTINE POLACRILEX 2 MG GUM BC PRN ×3 (11:02→22:50)
[2018-09-19] MEDS: NICOTINE 21 MG/24 HOURS TOPICAL PATCH TD SCH (11:02)
[2018-09-19] MEDS: CYCLOBENZAPRINE HCL 10 MG TABLET (FP) PO PRN (11:03)
--- NOTE | 2018-09-19 12:57 | EKG ---
Test Reason : Blood Pressure : / mmHG Vent. Rate : 067 BPM Atrial Rate : 067 BPM P-R Int : 140 ms QRS Dur : 086 ms QT Int : 394 ms P-R-T Axes : 032 040 030 degrees QTc Int : 416 ms NORMAL SINUS RHYTHM NORMAL ECG WHEN COMPARED WITH ECG OF 29-NOV-2016 13:51, NO SIGNIFICANT CHANGE WAS FOUND Confirmed by MD SHARMA MOYSES ([id number]) on 09/19/2018 12:57:18 PM Referred By: Confirmed By:CLARIBEL SHARMA MD
[2018-09-19] MEDS: hydrOXYzine PAMOATE 50 MG CAPSULE (FP) PO PRN ×2 (14:22→22:48)
--- NOTE | 2018-09-19 15:47 | PN ---
[facility] Progress Note (SOAP) Subjective: PT C/O BACK ACHE, NAUSEA, CHILLS, RUNNY NOSE, SNEEZING. Objective: 09/19/18 15:44 Vital Signs 09/19/18 09/19/18 10:50 14:51 Temperature 97.9 F 98.2 F Pulse Rate 98 H 82 Respiratory 20 18 Rate Blood Pressure 113/80 106/72 Laboratory Tests 09/16/18 09/16/18 09/16/18 08:00 09:32 09:32 WBC 3.9 L RBC 4.47 Hgb 12.1 Hct 38.3 MCV 85.6 MCH 27.1 MCHC 31.6 L RDW 16.9 H Plt Count 133 L D MPV 9.4 Sodium 140 Potassium 4.3 Chloride 107 Carbon Dioxide 26 Anion Gap 8 BUN 15 Creatinine 0.6 Creat Clearance w eGFR > 60 Random Glucose 77 Calcium 8.5 Total Bilirubin 0.3 AST 19 ALT 20 Alkaline Phosphatase 66 Total Protein 6.4 Albumin 3.3 L Urine Color Urine Appearance Urine pH Ur Specific [place] Urine Protein Urine Glucose (UA) Urine Ketones Urine Blood Urine Nitrite Urine Bilirubin Urine Urobilinogen Ur Leukocyte Esterase RPR Titer Nonreactive HIV 1&2 Antibody Screen HIV P24 Antigen 09/16/18 09/17/18 09:32 13:30 WBC RBC Hgb Hct MCV MCH MCHC RDW Plt Count MPV Sodium Potassium Chloride Carbon Dioxide Anion Gap BUN Creatinine Creat Clearance w eGFR Random Glucose Calcium Total Bilirubin AST ALT Alkaline Phosphatase Total Protein Albumin Urine Color Ltyellow Urine Appearance Cloudy Urine pH 7.0 D Ur Specific [place] 1.008 L Urine Protein Negative Urine Glucose (UA) Negative Urine Ketones Negative Urine Blood Negative Urine Nitrite Negative Urine Bilirubin Negative Urine Urobilinogen Negative Ur Leukocyte Esterase Negative RPR Titer HIV 1&2 Antibody Screen Negative HIV P24 Antigen Negative Assessment: 09/19/18 15:45 WITHDRAWAL SX Plan: CONTINUE DETOX AND PRESENT MEDS FOLLOW UP WITH [facility] FOR AFTERCARE PLANNED.
[2018-09-19] MEDS ORDERED: LIDOCAINE PATCH REMOVAL MC SCH (22:00)
[2018-09-19] MEDS: THIAMINE HCL 100 MG TABLET (FP) PO SCH (22:45)
[2018-09-19] MEDS: QUEtiapine FUMARATE 50 MG TABLET PO SCH (22:46)
[2018-09-19] MEDS: diphenhydrAMINE HCL 25 MG CAPSULE (FP) PO PRN (22:46)
[2018-09-19] MEDS: CYCLOBENZAPRINE HCL 10 MG TABLET (FP) PO SCH (22:47)
[2018-09-20] MEDS ORDERED: METHADONE HCL 5 MG TABLET (FOR DETOX USE ONLY) PO SCH (06:00)
[2018-09-20] MEDS: CYCLOBENZAPRINE HCL 10 MG TABLET (FP) PO SCH (06:06)
[2018-09-20 06:21] VITALS: BP 94/61; PULSE 60; TEMP 96.8
--- NOTE | 2018-09-20 12:21 | DS ---
[facility] Detox Discharge Summary Admission Date: 09/15/18 Discharge Date: 09/20/18 - History Present History: Alcohol Dependence, Cocaine Dependence, Opioid Dependence, Sedative Dependence Additional Comments: Patient completed detox successfully and was discharged safely. Pertinent Past History: Alcohol dependence Cocaine dependence Opioid dependence Sedative dependence Nicotine dependence Hepatitis C Seizure disorder, (benzo induced) - Physical Exam Results Vital Signs: Vital Signs Temperature 96.8 F L 09/20/18 06:20 Pulse Rate 60 09/20/18 06:20 Respiratory Rate 18 09/20/18 06:20 Blood Pressure 94/61 09/20/18 06:20 O2 Sat by Pulse Oximetry (%) Hypotension noted 94/61: asymptomatic, encouraged PO water hydration Pertinent Admission Physical Exam Findings: Withdrawal symptoms Laboratory Tests 09/16/18 09/16/18 09/16/18 08:00 09:32 09:32 WBC 3.9 L RBC 4.47 Hgb 12.1 Hct 38.3 MCV 85.6 MCH 27.1 MCHC 31.6 L RDW 16.9 H Plt Count 133 L D MPV 9.4 Sodium 140 Potassium 4.3 Chloride 107 Carbon Dioxide 26 Anion Gap 8 BUN 15 Creatinine 0.6 Creat Clearance w eGFR > 60 Random Glucose 77 Calcium 8.5 Total Bilirubin 0.3 AST 19 ALT 20 Alkaline Phosphatase 66 Total Protein 6.4 Albumin 3.3 L Urine Color Urine Appearance Urine pH Ur Specific [place] Urine Protein Urine Glucose (UA) Urine Ketones Urine Blood Urine Nitrite Urine Bilirubin Urine Urobilinogen Ur Leukocyte Esterase RPR Titer Nonreactive HIV 1&2 Antibody Screen HIV P24 Antigen 09/16/18 09/17/18 09:32 13:30 WBC RBC Hgb Hct MCV MCH MCHC RDW Plt Count MPV Sodium Potassium Chloride Carbon Dioxide Anion Gap BUN Creatinine Creat Clearance w eGFR Random Glucose Calcium Total Bilirubin AST ALT Alkaline Phosphatase Total Protein Albumin Urine Color Ltyellow Urine Appearance Cloudy Urine pH 7.0 D Ur Specific [place] 1.008 L Urine Protein Negative Urine Glucose (UA) Negative Urine Ketones Negative Urine Blood Negative Urine Nitrite Negative Urine Bilirubin Negative Urine Urobilinogen Negative Ur Leukocyte Esterase Negative RPR Titer HIV 1&2 Antibody Screen Negative HIV P24 Antigen Negative Labs reviewed - Treatment Hospital Course: Detox Protocol Followed, Detoxed Safely, Responded well, Discharged Condition Good - Medication Discharge Medications: Ambulatory Orders Zolpidem Tartrate [Ambien] 10 mg PO HS PRN #14 tablet MDD 10 12/04/16 - Diagnosis (1) Sedative, hypnotic or anxiolytic dependence with withdrawal, uncomplicated Status: Acute (2) Alcohol dependence with uncomplicated withdrawal Status: Acute (3) Nicotine dependence Status: Chronic Qualifiers: Nicotine product type: cigarettes Substance use status: in withdrawal Qualified Code(s): F17.213 - Nicotine dependence, cigarettes, with withdrawal (4) Opioid dependence with withdrawal Status: Acute (5) Cocaine dependence Status: Chronic Qualifiers: Substance use status: uncomplicated Qualified Code(s): F14.20 - Cocaine dependence, uncomplicated (6) History of seizure Status: Chronic - AMA Did Patient Leave Against Medical Advice: No (F/U with PCP within 1-2 weeks)
== END 2018-09-20 08:15 | disposition home or self-care (01) | DRG 773 ==
LOC: YASAS 12:14 → Y3N 16:55
PROC: HZ2ZZZZ Detoxification Services for Substance Abuse Treatment (ICD-10-PCS; principal; 2018-09-15)
DX: F11.23 Opioid dependence with withdrawal (principal); F10.230 Alcohol dependence with withdrawal, uncomplicated; F13.230 Sedative, hypnotic or anxiolytic dependence with withdrawal, uncomplicated; F14.20 Cocaine dependence, uncomplicated; F17.213 Nicotine dependence, cigarettes, with withdrawal; G47.00 Insomnia, unspecified; B18.2 Chronic viral hepatitis C; Z86.69 Personal history of other diseases of the nervous system and sense organs
CPT/HCPCS: 36415; 80053; 81003; 85027; 86593; 87389; 93005; 93010; Q0162